=== PATIENT | male | born 1950 | race Caucasian/White ===

== ENCOUNTER → 2023-06-09 | Outpatient (CLI) | payer MEDICARE ==
[2023-06-09 13:41] LABS: Microalb/Creat Ratio UR, Rand 6.519 mg/g (0.000-30.000); Microalbumin, Random Urine 10.3 mg/L (0.000-20.000)
== END ==
LOC: LAB SHORT 11:27 → LAB 11:27
PROVIDERS: Family Medicine
DX: I10 Essential (primary) hypertension (principal)
CPT/HCPCS: 82043; 82570

== ENCOUNTER 2024-09-13 07:29 | Day surgery (SDC) | payer MEDICARE ==
[~2024-09-13 07:29] MED LIST: EPINEPhrine HCl 1 MG/ML 1ML Amp ONE
[2024-09-13] MEDS ORDERED: propofoL 20 ML IV ONE (08:01)
[2024-09-13] MEDS ORDERED: Rocuronium Bromide 10 MG/ML 5ML Injection IV ONE (08:01)
[2024-09-13] MEDS ORDERED: Ondansetron HCl 2 MG / ML 2ML Vial ONE (08:01)
[2024-09-13] MEDS ORDERED: FentaNYL Citrate 50 MCG/ML 2 ML Injection ONE (08:01)
[2024-09-13] MEDS ORDERED: Dexamethasone Sod Phos 10 MG/ML 1ML VIAL ONE (08:01)
[2024-09-13] MEDS ORDERED: Lidocaine HCl/Pf 1% 5 ML VIAL ONE (08:12)
[2024-09-13] MEDS ORDERED: AMLO5 PO (08:15)
[2024-09-13] MEDS ORDERED: TRELEGY ELLIPT1 EAC1 IH (08:15)
[2024-09-13] MEDS ORDERED: LOSA50 PO (08:16)
[2024-09-13] MEDS ORDERED: ALBU90OI INH (08:16)
[2024-09-13] MEDS ORDERED: HYDCHL25 PO (08:16)
[2024-09-13] MEDS ORDERED: Crestor40 MG PO (08:17)
[2024-09-13] MEDS ORDERED: METF500 PO (08:17)
[2024-09-13] MEDS ORDERED: OxyCODONE 5 mg/Acetamin 325 mg TABLET PO SCH (08:20)
[2024-09-13] MEDS ORDERED: CeFAZolin Sodium 3,000 MG in NS 100 ML IV SCH (08:20)
[2024-09-13] MEDS ORDERED: HYDROcodone 5-APAP 325 TAB PO SCH (08:20)
[2024-09-13] MEDS ORDERED: CeFAZolin Sodium 3,000 MG VIAL ONE (08:23)
[2024-09-13] MEDS ORDERED: Lactated Ringer's 1,000 ML IV ONE (08:34)
[2024-09-13] MEDS ORDERED: Bupivacaine 0.5% HCl 5 MG/ML 30MLVIAL INJ ONE ×2 (09:08)
[2024-09-13] MEDS ORDERED: Sugammadex Sodium 200 MG/2ML SDV (100 MG/ML) ONE (09:15)
[2024-09-13 10:14] VITALS: BP 125/75
== END 2024-09-13 10:30 | disposition home or self-care (01) ==
LOC: ORSCSDS 07:29
PROVIDERS: Surgery
PROC: 0HB8XZX Excision of Buttock Skin, External Approach, Diagnostic (ICD-10-PCS; principal; 2024-09-13 09:00)
DX: C43.59 Malignant melanoma of other part of trunk (principal); R22.2 Localized swelling, mass and lump, trunk; I12.9 Hypertensive chronic kidney disease with stage 1 through stage 4 chronic kidney disease, or unspecified chronic kidney disease; N18.9 Chronic kidney disease, unspecified; G47.33 Obstructive sleep apnea (adult) (pediatric); J44.9 Chronic obstructive pulmonary disease, unspecified; Z87.891 Personal history of nicotine dependence; E66.9 Obesity, unspecified; Z68.39 Body mass index [BMI] 39.0-39.9, adult; Z99.81 Dependence on supplemental oxygen
CPT/HCPCS: 82947; 88305; 88341; 88342; J0171; J0690; J1100; J2003; J2405; J2704; J3010; J7120

== ENCOUNTER 2025-05-10 08:13 | Emergency (ER) | payer MEDICARE ==
[~2025-05-10] VITALS: Ht 177.8 cm; Wt 127.0 kg
[~2025-05-10 08:13] MED LIST changes: +ALBU90OI INH; +AMLO5 PO; +Crestor40 MG PO; -EPINEPhrine HCl 1 MG/ML 1ML Amp ONE; +HYDCHL25 PO; +LOSA50 PO; +METF500 PO; +TRELEGY ELLIPT1 EAC1 IH
[2025-05-10 08:23] VITALS: BP 151/71
[2025-05-10 10:20] LABS: BASOPHILS ABSOLUTE AUTO 0.06 K/mm3 (0.00-0.23); BASOPHILS PERCENT AUTO 1 % (0-2); EOSINOPHILS ABSOLUTE AUTO 0.08 K/mm3 (0.00-0.68); EOSINOPHILS PERCENT AUTO 1 % (0-6); Hematocrit 42.6 % (37.0-53.0); Hemoglobin 14.2 g/dL (13.5-17.5); IMMATURE GRAN ABSOLUTE AUTO 0.03 K/mm3 (0.00-0.10); IMMATURE GRAN PERCENT AUTO 0 % (0-1); LYMPHOCYTES ABSOLUTE AUTO 0.82 K/mm3 (0.84-5.20); LYMPHOCYTES PERCENT AUTO 9 % (21-46); MONOCYTES ABSOLUTE AUTO 0.71 K/mm3 (0.16-1.47); MONOCYTES PERCENT AUTO 8 % (4-13); Mean Corpuscular HGB Conc 33.3 g/dL (31.5-36.5); Mean Corpuscular Volume 86 fL (80-100); NEUTROPHILS ABSOLUTE AUTO 7.17 K/mm3 (1.96-9.15); NEUTROPHILS PERCENT AUTO 81 % (41-73); NRBC ABSOLUTE 0.00 K/mm3 (0.00-0.02); NRBC Auto 0.0 /100 WBC (0.0-0.2); Platelet Count 225 K/mm3 (150-400); RDW Coefficient Variation 13.4 % (11.7-14.2); RDW Standard Deviation 41.6 fL (35.1-46.3)
[2025-05-10 10:39] LABS: Alanine Aminotransfer (ALT/SGP 24.0 U/L (12-78); Albumin, Blood 4.0 g/dL (3.4-5.0); Albumin/Globulin Ratio 1.1 (0.8-1.8); Anion Gap 9.0 mmol/L (3-11); Aspartate Aminotrans (AST/SGOT 13.0 U/L (12-37); Bilirubin, Total 0.7 mg/dL (0.1-1.0); Blood Urea Nitrogen 16.0 mg/dL (8-24); CO2, Blood 29.0 mmol/L (21-32); Calcium, Blood 9.3 mg/dL (8.5-10.1); Chloride, Blood 103.0 mmol/L (98-108); Creatinine, Blood 1.14 mg/dL (0.60-1.20); Globulin, Blood 3.7 g/dL (2.2-4.0); Glucose, Blood 100.0 mg/dL (70-99); Magnesium, Blood 2.1 mg/dL (1.6-2.4); Potassium, Blood 3.5 mmol/L (3.5-5.5); Sodium, Blood 137.0 mmol/L (136-145); Total Protein, Blood 7.7 g/dL (6.4-8.2)
[2025-05-10] MEDS ORDERED: Dexamethasone Sodium Phosphate 4 MG/ML 1ML Vial IV ONE (11:05)
[2025-05-10 11:14] LABS: pH Blood Venous 7.34 (7.34-7.37)
[2025-05-10] MEDS ORDERED: DEXA2 PO (11:32)
== END 2025-05-10 12:09 | disposition home or self-care (01) ==
LOC: ER 08:13
PROVIDERS: Student in an Organized Health Care Education/Training Program
DX: C79.31 Secondary malignant neoplasm of brain (principal); C80.1 Malignant (primary) neoplasm, unspecified; J45.909 Unspecified asthma, uncomplicated; Z79.84 Long term (current) use of oral hypoglycemic drugs; J44.9 Chronic obstructive pulmonary disease, unspecified; Z79.899 Other long term (current) drug therapy
CPT/HCPCS: 70450; 80053; 82140; 82803; 83735; 85025; 93005; 93010; 96374; 99285-25; J1100